=== PATIENT | male | born 1990 | race Caucasian/White ===

== ENCOUNTER 2017-05-04 20:34 | Emergency (ER) | payer OTHER, BC ==
[~2017-05-04] VITALS: Ht 182.9 cm; Wt 110.4 kg
[2017-05-04 20:46] VITALS: BP 135/54
[2017-05-04] MEDS ORDERED: MOTRIN800 MG PO (21:53)
== END 2017-05-04 22:21 | disposition home or self-care (01) ==
LOC: EME 20:34
PROC: 2W38X1Z Immobilization of Right Upper Extremity using Splint (ICD-10-PCS; principal; 2017-05-04)
DX: S62.306A Unspecified fracture of fifth metacarpal bone, right hand, initial encounter for closed fracture (principal); Y09 Assault by unspecified means; Y99.0 Civilian activity done for income or pay; Y92.149 Unspecified place in prison as the place of occurrence of the external cause
CPT/HCPCS: 73130; 99281; 99283

== ENCOUNTER 2017-07-29 22:04 | Emergency (ER) | payer OTHER, BC ==
[~2017-07-29] VITALS: Ht 188 cm; Wt 114.7 kg
[~2017-07-29 22:04] MED LIST: MOTRIN800 MG PO
[2017-07-29] MEDS ORDERED: NORCO 5/3251 TABLET PO (23:36)
[2017-07-30 00:17] VITALS: BP 126/84
== END 2017-07-30 00:17 | disposition home or self-care (01) ==
LOC: EME 22:04
PROC: 2W3CX1Z Immobilization of Right Lower Arm using Splint (ICD-10-PCS; principal; 2017-07-29)
DX: S62.396A Other fracture of fifth metacarpal bone, right hand, initial encounter for closed fracture (principal); S60.221A Contusion of right hand, initial encounter; Y04.2XXA Assault by strike against or bumped into by another person, initial encounter; Y92.149 Unspecified place in prison as the place of occurrence of the external cause; Y99.0 Civilian activity done for income or pay
CPT/HCPCS: 73130; 99281; 99283